=== PATIENT | female | born 1955 | race Two or more races ===

== ENCOUNTER 2020-09-04 09:16 | Outpatient (CLI) | payer OTHER | END 2020-09-04 09:27 | disposition home or self-care (01) | LOC: SONOGRAMA 09:16 | PROVIDERS: ATTEND Pathology Anatomic Pathology & Clinical Pathology | DX: E04.1 Nontoxic single thyroid nodule (principal) ==

== ENCOUNTER 2020-10-16 08:12 | Outpatient (CLI) | payer OTHER | END 2020-10-16 08:15 | disposition home or self-care (01) | LOC: SONOGRAMA 08:12 | PROVIDERS: ATTEND Pathology Anatomic Pathology & Clinical Pathology | DX: D34 Benign neoplasm of thyroid gland (principal); E04.2 Nontoxic multinodular goiter; E04.8 Other specified nontoxic goiter ==

== ENCOUNTER 2022-01-21 10:05 | Outpatient (CLI) | payer OTHER | END 2022-01-21 10:08 | disposition home or self-care (01) | LOC: SONOGRAMA 10:05 | PROVIDERS: ATTEND Pathology Anatomic Pathology & Clinical Pathology | DX: E04.2 Nontoxic multinodular goiter (principal) ==